=== PATIENT | male | born 1975 | race Caucasian/White ===

== ENCOUNTER → 2017-07-03 | Outpatient (CLI) | payer BC ==
[2017-07-03 11:08] LABS: HEMOGLOBIN 16.3 gm/dl (14.0-17.5); RED BLOOD COUNT 5.56 M/UL (4.20-5.50); WHITE BLOOD COUNT 5.6 K/UL (4.5-11.0)
[2017-07-03 11:37] LABS: BUN/CREATININE RATIO 15 (0-10)
== END ==
LOC: LAB 09:42
PROVIDERS: Dermatology
DX: L40.0 Psoriasis vulgaris (principal); L40.1 Generalized pustular psoriasis
CPT/HCPCS: 36415; 80053; 85027

== ENCOUNTER → 2021-08-11 | Day surgery (SDC) | payer BC ==
[~2021-08-11] MED LIST: PROZAC 20 MG CA20 MG PO
== END | disposition home or self-care (01) ==
LOC: OR 07:27
DX: K51.90 Ulcerative colitis, unspecified, without complications (principal); K63.5 Polyp of colon; K57.30 Diverticulosis of large intestine without perforation or abscess without bleeding; K21.9 Gastro-esophageal reflux disease without esophagitis; G47.30 Sleep apnea, unspecified; Z80.3 Family history of malignant neoplasm of breast; Z79.899 Other long term (current) drug therapy
CPT/HCPCS: J2704; J7120